=== PATIENT | male | born 1955 | race Caucasian/White ===

== ENCOUNTER 2020-10-13 10:32 | Inpatient (IN) | payer OTHER ==
[~2020-10-13] VITALS: Ht 185.4 cm; Wt 74.4 kg
[~2020-10-13 10:32] MED LIST: IBUPROFEN800 MG PO
[2020-10-13 12:25] LABS: BASOPHIL 1.7 % (0-2); EOSINOPHIL 3.5 % (0-7); HCT > 60.0 % (42.0-52.0); MCH 27.1 pg (25.0-31.0); MCHC 32.8 g/dL (32.0-36.0); MCV 82.7 fL (78.0-100.0); MONOCYTE 4.2 % (0-12); MPV 10.6 fL (6.0-9.5); NEUTROPHIL 53.8 % (41-80); NRBC 0.1; PLT 388 K/uL (150-400); RBC 7.81 M/uL (4.70-6.00); RDW 19.3 % (11.5-14.0); WBC 20.4 K/uL (4.0-10.5)
[2020-10-13 12:31] LABS: INR 1.06 (0.9-1.2); PROTHROMBIN TIME 13.1 SECONDS (11.4-13.6); PTT 46.8 SECONDS (22.2-34.7)
[2020-10-13 12:34] LABS: HGB 21.2 g/dl (13.2-18.0); LYMPHOCYTE 35.6 % (15-48)
[2020-10-13 12:48] LABS: ALBUMIN 3.9 g/dL (3.4-5.0); BILIRUBIN - TOTAL 0.6 mg/dL (0.2-1.0); BUN/CREAT RATIO (CALC) 18.4 RATIO; C-REACTIVE PROTEIN 1.7 mg/dL (<=0.90); CREATININE 0.87 mg/dL (0.67-1.17); GLOBULIN (CALCULATION) 3.7 g/dL; POTASSIUM 5.1 mmol/L (3.5-5.1); TOTAL PROTEIN 7.6 g/dL (6.4-8.2)
[2020-10-13 13:13] LABS: LACTIC ACID 0.9 mmol/L (0.4-1.9)
[2020-10-14 04:08] LABS: BASOPHIL 1.4 % (0-2); EOSINOPHIL 4.1 % (0-7); HCT > 60.0 % (42.0-52.0); HGB 19.7 g/dl (13.2-18.0); LYMPHOCYTE 40.3 % (15-48); MCH 26.5 pg (25.0-31.0); MCHC 31.7 g/dL (32.0-36.0); MCV 83.5 fL (78.0-100.0); NEUTROPHIL 48.1 % (41-80); NRBC 0.1; PLT 346 K/uL (150-400); RBC 7.44 M/uL (4.70-6.00); RDW 19.4 % (11.5-14.0); WBC 17.3 K/uL (4.0-10.5)
[2020-10-14 04:32] LABS: INR 1.07 (0.9-1.2); PROTHROMBIN TIME 13.2 SECONDS (11.4-13.6)
[2020-10-14 04:34] LABS: BUN/CREAT RATIO (CALC) 22.2 RATIO; CREATININE 0.9 mg/dL (0.67-1.17); PHOSPHORUS 4.3 mg/dL (2.6-4.7); POTASSIUM 4.1 mmol/L (3.5-5.1)
[2020-10-15 06:27] LABS: BASOPHIL 1.2 % (0-2); EOSINOPHIL 4.7 % (0-7); HCT 58.1 % (42.0-52.0); HGB 18.8 g/dl (13.2-18.0); LYMPHOCYTE 39.9 % (15-48); MCH 26.9 pg (25.0-31.0); MCHC 32.4 g/dL (32.0-36.0); MPV 11.1 fL (6.0-9.5); NRBC 0.1; PLT 310 K/uL (150-400); RDW 18.9 % (11.5-14.0); WBC 15.5 K/uL (4.0-10.5)
[2020-10-15 06:35] LABS: TOTAL CELL COUNT 100
[2020-10-15 06:40] LABS: BUN/CREAT RATIO (CALC) 26.5 RATIO; CREATININE 0.83 mg/dL (0.67-1.17); MAGNESIUM 2.1 mg/dL (1.8-2.4); PHOSPHORUS 3.4 mg/dL (2.6-4.7)
[2020-10-15 06:52] LABS: BLAST 2; EOSINOPHIL(M) 2 % (0-7); LYMPHOCYTE(M) 7 % (15-48); MONOCYTE(M) 1 % (0-12); NEUTROPHILS(M) 68 % (41-80); VARIANT LYMPHOCYTE 20
[2020-10-15 06:53] LABS: PLATELET ESTIMATE NORMAL; PLATELET MORPHOLOGY NORMAL
[2020-10-16 06:03] LABS: BASOPHIL 1.3 % (0-2); EOSINOPHIL 4.6 % (0-7); HCT 56.2 % (42.0-52.0); HGB 17.7 g/dl (13.2-18.0); LYMPHOCYTE 39.9 % (15-48); MCH 26.3 pg (25.0-31.0); MCHC 31.5 g/dL (32.0-36.0); MCV 83.4 fL (78.0-100.0); MONOCYTE 4.8 % (0-12); MPV 10.5 fL (6.0-9.5); NEUTROPHIL 48.6 % (41-80); NRBC 0; PLT 309 K/uL (150-400); RBC 6.74 M/uL (4.70-6.00); RDW 18.6 % (11.5-14.0); WBC 14.2 K/uL (4.0-10.5)
[2020-10-16 06:35] LABS: BUN/CREAT RATIO (CALC) 23.5 RATIO; C-REACTIVE PROTEIN 3.8 mg/dL (<=0.90); CREATININE 0.81 mg/dL (0.67-1.17); MAGNESIUM 2.1 mg/dL (1.8-2.4); POTASSIUM 4.1 mmol/L (3.5-5.1)
--- NOTE | 2020-10-16 18:33 | NUR ---
10/16/20 1745 ORDER RECEIVED FOR MIDLINE INSERTION. PROCEDURE EXPLANIED TO PATIENT. PT PREPPED AND DRAPED IN STERILE FASHION. THE PT'S LEFT UPPER ARM BASILIC VEIN WAS VISUALIZED USING THE SITE RITE 6 ULTRA SOUND. A 21 GA NEEDLE WAS USED. GOOD BLOOD RETURN WAS NOTED. THE GUIDE WIRE WOULD NOT THREAD. THE NEEDLE AND WIRE WERE REMOVED. MOVED TO THE LEFT ARM. STERILE PROCEDURE MAINTAINED A 21 GA NEEDLE WAS USED. GOOD BLOOD RETURN WAS NOTED. GUIDE WIRE THREADED EASILY. THE NEEDLE WAS REMOVED AND THE SHEATH WAS PLACED OVER THE WIRE. THE WIRE WAS REMOVED. A CONNECTOR WAS FLUSHED AND PLACED ON THE CATHETER. GOOD BLOOD RETURN WAS NOTED. FLUSHED SEVERAL TIMES. A STERILE STAT LOCK WAS PLACED ON THE CAHTETER, A STERILE SORBAVIEW WAS PLACED OVER THE MIDLINE CATHEER. PT TOLERATED WELL. PT HAS A POWERGLIDE MIDLINE CATHETER. 20GA GOOD FOR 29 DAYS. THIS IS NOT A CENTRAL LINE. REPORT TO Jocy WANG RNSTORE MANAGER.
[2020-10-17 03:27] LABS: BASOPHIL 1.3 % (0-2); HCT 57.4 % (42.0-52.0); LYMPHOCYTE 37.2 % (15-48); MCH 26.4 pg (25.0-31.0); MCHC 31.4 g/dL (32.0-36.0); MCV 84.3 fL (78.0-100.0); MONOCYTE 5.1 % (0-12); MPV 10.6 fL (6.0-9.5); NRBC 0; PLT 333 K/uL (150-400); RBC 6.81 M/uL (4.70-6.00); RDW 18.9 % (11.5-14.0); WBC 15.2 K/uL (4.0-10.5)
[2020-10-17 03:39] LABS: NEUTROPHIL 50.3 % (41-80)
[2020-10-17 03:58] LABS: C-REACTIVE PROTEIN 4.5 mg/dL (<=0.90); CREATININE 1.02 mg/dL (0.67-1.17); POTASSIUM 4.1 mmol/L (3.5-5.1)
--- NOTE | 2020-10-17 12:09 | NUR ---
10/17/20 Mr. Bailey will require IV antibiotics at discharge. He does not have insurance or a PCP. Pt states that he has transportation to come for outpatient treatment. The [facility] has agreed to see patient.
[2020-10-18 03:29] LABS: BASOPHIL 1.3 % (0-2); EOSINOPHIL 5.6 % (0-7); HCT 55.9 % (42.0-52.0); HGB 17.7 g/dl (13.2-18.0); LYMPHOCYTE 32.8 % (15-48); MCH 26.7 pg (25.0-31.0); MCHC 31.7 g/dL (32.0-36.0); MCV 84.2 fL (78.0-100.0); MONOCYTE 5.1 % (0-12); NEUTROPHIL 53.9 % (41-80); NRBC 0; PLT 355 K/uL (150-400); RBC 6.64 M/uL (4.70-6.00); RDW 19.2 % (11.5-14.0)
[2020-10-18 03:31] LABS: WBC 15.9 K/uL (4.0-10.5)
[2020-10-18 03:50] LABS: ALBUMIN 2.6 g/dL (3.4-5.0); BUN/CREAT RATIO (CALC) 10.4 RATIO; C-REACTIVE PROTEIN 7.6 mg/dL (<=0.90); CREATININE 1.82 mg/dL (0.67-1.17); GLOBULIN (CALCULATION) 3.5 g/dL; MAGNESIUM 2.3 mg/dL (1.8-2.4); PHOSPHORUS 4.8 mg/dL (2.6-4.7); POTASSIUM 4.1 mmol/L (3.5-5.1); TOTAL PROTEIN 6.1 g/dL (6.4-8.2)
--- NOTE | 2020-10-18 16:35 | NUR ---
PAIN MEDICATION OFFERED PATIENT STATED HE WAS IN PAIN, PATIENT STATES HE WILL CALL FOR PAIN MEDICATION LATER IF NEEDED.
[2020-10-18 17:51] LABS: BILIRUBIN NEGATIVE (NEGATIVE); BLOOD NEGATIVE Ery/uL (NEGATIVE); CLARITY CLEAR (CLEAR); COLOR YELLOW (YELLOW); GLUCOSE (U) NORMAL (NORMAL); LEUKOCYTES NEGATIVE Leu/uL (NEGATIVE); NITRITE NEGATIVE (NEGATIVE); PROTEIN NEGATIVE (NEGATIVE); UROBILINOGEN 0.2 mg/dL (0.2-1.0); pH 5.5 (5.0-9.0)
[2020-10-18 18:02] LABS: SQUAMOUS EPITHELIAL CELLS RARE
[2020-10-18 18:06] LABS: URINE CREATININE 52.67 mg/dL (29.00-226.00)
--- NOTE | 2020-10-19 03:17 | NUR ---
10/19/20 0015 STARS SPECIALIST NOTIFIED OF RANDOM VANC LEVEL OF 18.7. STATED TO NOTIFY PHARMACY. RN CALLED PHARMACY AND WAS TOLD TO LET AM RN KNOW TO INFORM INHOUSE PHARMACY TO REDOSE/RETIME
[2020-10-19 08:55] LABS: BASOPHIL 1.5 % (0-2); BUN/CREAT RATIO (CALC) 10.7 RATIO; CREATININE 1.69 mg/dL (0.67-1.17); EOSINOPHIL 5.2 % (0-7); HGB 18.3 g/dl (13.2-18.0); MAGNESIUM 2.2 mg/dL (1.8-2.4); MCH 26.9 pg (25.0-31.0); MCHC 32.1 g/dL (32.0-36.0); MCV 83.7 fL (78.0-100.0); MONOCYTE 5.6 % (0-12); MPV 11.7 fL (6.0-9.5); NEUTROPHIL 49.2 % (41-80); NRBC 0; PHOSPHORUS 4.1 mg/dL (2.6-4.7); PLT 385 K/uL (150-400); POTASSIUM 4.1 mmol/L (3.5-5.1); RBC 6.81 M/uL (4.70-6.00); RDW 19.6 % (11.5-14.0); WBC 15.7 K/uL (4.0-10.5)
--- NOTE | 2020-10-19 15:32 | NUR ---
FOLLOW UP APPOINTMENT WITH DR PORTILLO 11/02 @10:30 [phone]
--- NOTE | 2020-10-19 15:46 | NUR ---
10/19 Mr. Bailey has been approved for Medicaid by [employer]. The appointment at [facility] was canceled. He will be transferred to another acute care hospital. An appointment was scheduled at Dr. Marcello Denson's office for at 10:30 a.m. Report given to Dr. Dr. Meneess and MS Sejal RN.
== END 2020-10-19 22:40 | disposition other institution (70) | DRG 854 ==
LOC: FER 10:32 → FMS 16:18
PROVIDERS: Emergency Medicine; Internal Medicine Nephrology; Nurse Practitioner; ADMIT Internal Medicine
PROC: 05HY33Z Insertion of Infusion Device into Upper Vein, Percutaneous Approach (ICD-10-PCS; 2020-10-16)
PROC: 0S9Q0ZZ Drainage of Left Toe Phalangeal Joint, Open Approach (ICD-10-PCS; principal; 2020-10-18)
PROC: 0H9NXZX Drainage of Left Foot Skin, External Approach, Diagnostic (ICD-10-PCS; principal; 2020-10-18)
DX: A41.9 Sepsis, unspecified organism (principal); T33.822A Superficial frostbite of left foot, initial encounter; L03.116 Cellulitis of left lower limb; L02.612 Cutaneous abscess of left foot; N17.9 Acute kidney failure, unspecified; M86.172 Other acute osteomyelitis, left ankle and foot; F17.210 Nicotine dependence, cigarettes, uncomplicated; Z20.822 Contact with and (suspected) exposure to COVID-19; S90.812A Abrasion, left foot, initial encounter; R23.8 Other skin changes; E86.0 Dehydration; R60.0 Localized edema; D75.1 Secondary polycythemia; I77.6 Arteritis, unspecified; R23.3 Spontaneous ecchymoses; Z88.1 Allergy status to other antibiotic agents
CPT/HCPCS: 36415; 73700; 73718; 73720; 80048; 80053; 80202; 81001; 82570; 83605; 83735; 84100; 84145; 84300; 85025; 85610; 85730; 86140; 87040; 87070; 87075; 87205; 93970; C1751; J1170; J1642; J1650; J1885; J2270; J2405; J2543; J3370; J7030; J7050; U0002

== ENCOUNTER 2022-01-30 18:29 | Emergency (ER) | payer MEDICARE, OTHER ==
[2022-01-30 19:59] LABS: BASOPHIL 0.7 % (0-2); EOSINOPHIL 1.1 % (0-7); HCT 40.5 % (42.0-52.0); HGB 13.9 g/dl (13.2-18.0); LYMPHOCYTE 54.5 % (15-48); MCH 38.3 pg (25.0-31.0); MCHC 34.3 g/dL (32.0-36.0); MCV 111.6 fL (78.0-100.0); MONOCYTE 4.8 % (0-12); MPV 10.2 fL (6.0-9.5); NEUTROPHIL 38.4 % (41-80); NRBC 0; PLT 313 K/uL (150-400); RBC 3.63 M/uL (4.70-6.00); RDW 12.7 % (11.5-14.0)
[2022-01-30 20:05] LABS: WBC 14.9 K/uL (4.0-10.5)
[2022-01-30 20:14] LABS: BUN/CREAT RATIO (CALC) 21.5 RATIO; CREATININE 0.79 mg/dL (0.67-1.17); POTASSIUM 3.5 mmol/L (3.5-5.1)
[2022-01-30] MEDS ORDERED: ELIQUIS5 M1 PO (20:40)
== END 2022-01-30 20:54 | disposition home or self-care (01) ==
LOC: FER 18:29
PROVIDERS: Internal Medicine
DX: I82.812 Embolism and thrombosis of superficial veins of left lower extremity (principal); I10 Essential (primary) hypertension; F17.210 Nicotine dependence, cigarettes, uncomplicated; E78.5 Hyperlipidemia, unspecified; Z28.310 Unvaccinated for COVID-19; Z79.82 Long term (current) use of aspirin; Z79.899 Other long term (current) drug therapy; Z91.040 Latex allergy status
CPT/HCPCS: 36415; 80048; 85025; 85379